=== PATIENT | female | born 1965 | race Caucasian/White ===

== ENCOUNTER 2023-01-02 09:35 | Emergency (ER) | payer BC, OTHER ==
[2023-01-02] MEDS ORDERED: Gabapentin 300 MG CAP ONE (10:39)
[2023-01-02 11:40] LABS: #Eosinphils 0.1 10x3/uL (0.0-0.5); #Monocytes 0.4 10x3/uL (0.0-1.1); #Neutrophils 2.3 10x3/uL (1.5-8.4); %Basophils 0.7 % (0.0-2.0); %Eosinophils 2.2 % (0.0-6.0); %Lymphocytes 37.1 % (18.0-47.0); %Monocytes 8.3 % (0.0-10.0); %Neutrophils 51.5 % (40.0-75.0); Hematocrit 35.2 % (34.9-44.5); Hemoglobin 11.9 g/dL (12.0-15.5); Mean Corpuscular HGB CONC 33.8 g/dL (32.0-36.0); Mean Corpuscular Hemoglobin 35.7 pg (27.0-33.0); Mean Corpuscular Volume 105.7 fl (81.6-98.3); Mean Platelet Volume 8.9 fl (7.4-10.4); Platelet Count 232 10x3/uL (150-450); RBC Distribution Width 14.6 % (11.5-14.5); Red Blood Cell (RBC) Count 3.33 10x6/uL (3.90-5.03); White Blood Cell (WBC) Count 4.5 10x3/uL (3.5-10.5)
[2023-01-02 11:41] LABS: ALT (SGPT) 9 U/L (8-55); AST (SGOT) 14 U/L (5-34); Albumin 4.2 g/dL (3.5-5.0); Alkaline Phosphatase 77 U/L (40-110); Anion Gap 15 mmol/L (10-20); BUN (Urea Nitrogen) 16 mg/dL (9.8-20.1); Bilirubin, Total 1.3 mg/dL (0.2-1.2); Calc. Creatinine Clearance 0 mL/min (70-130); Calcium 8.9 mg/dL (7.8-10.44); Carbon Dioxide 25 mmol/L (22-29); Chloride 104 mmol/L (98-107); Estimated GFR 89; Globulin 2.1 g/dL (2.4-3.5); Glucose 98 mg/dL (70-105); Potassium 4.1 mmol/L (3.5-5.1); Protein, Total 6.3 g/dL (6.0-8.3); Sodium 140 mmol/L (136-145)
[2023-01-02 11:48] LABS: Troponin I Less than 0.010 ng/mL (< 0.028)
== END 2023-01-02 12:58 | disposition home or self-care (01) ==
LOC: CSHERS 09:35
DX: R06.02 Shortness of breath (principal); M25.561 Pain in right knee; G89.29 Other chronic pain; I50.9 Heart failure, unspecified
CPT/HCPCS: 71045; 80053; 83880; 84484; 85025; 93005

== ENCOUNTER 2023-01-11 10:50 | Inpatient (IN) | payer OTHER ==
[2023-01-11 12:04] LABS: #Eosinphils 0.1 10x3/uL (0.0-0.5); #Monocytes 0.4 10x3/uL (0.0-1.1); #Neutrophils 2.1 10x3/uL (1.5-8.4); %Basophils 0.7 % (0.0-2.0); %Eosinophils 2.3 % (0.0-6.0); %Lymphocytes 40.6 % (18.0-47.0); %Monocytes 8.8 % (0.0-10.0); %Neutrophils 47.4 % (40.0-75.0); Hematocrit 35.7 % (34.9-44.5); Hemoglobin 12.2 g/dL (12.0-15.5); Mean Corpuscular HGB CONC 34.2 g/dL (32.0-36.0); Mean Corpuscular Hemoglobin 36.1 pg (27.0-33.0); Mean Corpuscular Volume 105.6 fl (81.6-98.3); Mean Platelet Volume 8.8 fl (7.4-10.4); Platelet Count 227 10x3/uL (150-450); RBC Distribution Width 14.4 % (11.5-14.5); Red Blood Cell (RBC) Count 3.38 10x6/uL (3.90-5.03); White Blood Cell (WBC) Count 4.3 10x3/uL (3.5-10.5)
[2023-01-11 12:16] LABS: ALT (SGPT) 15 U/L (8-55); AST (SGOT) 20 U/L (5-34); Albumin 4.4 g/dL (3.5-5.0); Alkaline Phosphatase 68 U/L (40-110); Anion Gap 14 mmol/L (10-20); BUN (Urea Nitrogen) 14 mg/dL (9.8-20.1); Bilirubin, Total 0.7 mg/dL (0.2-1.2); Calc. Creatinine Clearance 0 mL/min (70-130); Carbon Dioxide 26 mmol/L (22-29); Chloride 106 mmol/L (98-107); Estimated GFR 94; Globulin 2.4 g/dL (2.4-3.5); Glucose 107 mg/dL (70-105); Magnesium 1.9 mg/dL (1.6-2.6); Potassium 4.2 mmol/L (3.5-5.1); Protein, Total 6.8 g/dL (6.0-8.3); Sodium 142 mmol/L (136-145)
[2023-01-11 12:21] LABS: Troponin I Less than 0.010 ng/mL (< 0.028)
[2023-01-11 12:30] LABS: Bilirubin Neg (Negative); Blood, Urine 25 (Negative); Clarity Clear (Clear); Glucose, Urine (Dipstick) Normal (Negative); Ketone, Urine Negative (Negative); Leukocyte 25 (Negative); Nitrite Negative (Negative); Protein, Urine (Dipstick) 15 mg/dl (Neg-Trace); Specific Gravity, Urine 1.015 (1.005-1.030); Urobilinogen Normal mg/dL (Less than 2); pH, Urine 6.5 (5.0-9.0)
[2023-01-11 13:20] LABS: RBC/HPF 0-3 HPF (0-3)
[2023-01-11 13:21] LABS: CAUTI Indications for Culture Dysuria,urgency,freq; WBC/HPF 0-3 HPF (0-3)
[2023-01-11 13:22] LABS: Bacteria/HPF Rare-Few HPF (None Seen); Urine Culture Reflex No No
[2023-01-11] MEDS ORDERED: Ondansetron PF 4 MG/2 ML Vial IVP PRN (14:13)
[2023-01-11] MEDS ORDERED: Ondansetron ODT 4 MG TAB PO PRN (14:13)
[2023-01-11] MEDS: Acetaminophen 325 MG TAB PO PRN (22:35)
[2023-01-12] MEDS ORDERED: Apixaban 5 MG TAB PO SCH
[2023-01-12] MEDS ORDERED: Melatonin 3 MG TAB PO PRN (00:02)
[2023-01-12] MEDS ORDERED: Furosemide 40 MG/4 ML VIAL SLOW IVP SCH (00:15)
[2023-01-12] MEDS ORDERED: traMADol HCl 50 MG TAB PO SCH (00:15)
[2023-01-12 05:34] LABS: #Eosinphils 0.1 10x3/uL (0.0-0.5); #Monocytes 0.4 10x3/uL (0.0-1.1); #Neutrophils 1.8 10x3/uL (1.5-8.4); %Basophils 0.7 % (0.0-2.0); %Eosinophils 3.3 % (0.0-6.0); %Lymphocytes 44.3 % (18.0-47.0); %Monocytes 9.4 % (0.0-10.0); %Neutrophils 42.1 % (40.0-75.0); Hematocrit 36.2 % (34.9-44.5); Hemoglobin 12.1 g/dL (12.0-15.5); Mean Corpuscular HGB CONC 33.4 g/dL (32.0-36.0); Mean Corpuscular Hemoglobin 35.5 pg (27.0-33.0); Mean Corpuscular Volume 106.2 fl (81.6-98.3); Mean Platelet Volume 8.9 fl (7.4-10.4); Platelet Count 229 10x3/uL (150-450); RBC Distribution Width 14.4 % (11.5-14.5); Red Blood Cell (RBC) Count 3.41 10x6/uL (3.90-5.03); White Blood Cell (WBC) Count 4.2 10x3/uL (3.5-10.5)
[2023-01-12 05:48] LABS: Anion Gap 15 mmol/L (10-20); BUN (Urea Nitrogen) 11 mg/dL (9.8-20.1); Calc. Creatinine Clearance 162 mL/min (70-130); Calcium 9.3 mg/dL (7.8-10.44); Carbon Dioxide 29 mmol/L (22-29); Chloride 101 mmol/L (98-107); Estimated GFR 85; Glucose 101 mg/dL (70-105); Potassium 3.8 mmol/L (3.5-5.1); Sodium 141 mmol/L (136-145)
[2023-01-12] MEDS: Furosemide 40 MG/4 ML VIAL SLOW IVP SCH ×2 (06:23→14:52)
[2023-01-12] MEDS: Gabapentin 300 MG CAP PO SCH ×3 (08:24→19:54)
[2023-01-12] MEDS: Escitalopram Oxalate 20 mg Tablet PO SCH (08:24)
[2023-01-12] MEDS: Spironolactone 25 MG TAB PO SCH (08:25)
[2023-01-12] MEDS: Apixaban 5 MG TAB PO SCH ×2 (08:25→19:54)
[2023-01-12] MEDS: busPIRone HCl 15 MG TAB PO SCH ×2 (08:25→19:54)
[2023-01-12] MEDS: traMADol HCl 50 MG TAB PO PRN ×2 (11:47→19:55)
[2023-01-12 17:41] LABS: Troponin I 0.011 ng/mL (< 0.028)
[2023-01-12] MEDS: Zolpidem Tartrate 5 MG TAB PO PRN (20:19)
[2023-01-13] MEDS: traMADol HCl 50 MG TAB PO PRN ×3 (02:54→16:42)
[2023-01-13 05:28] LABS: #Eosinphils 0.1 10x3/uL (0.0-0.5); #Monocytes 0.4 10x3/uL (0.0-1.1); #Neutrophils 1.5 10x3/uL (1.5-8.4); %Basophils 0.5 % (0.0-2.0); %Lymphocytes 42.7 % (18.0-47.0); %Monocytes 11.5 % (0.0-10.0); %Neutrophils 42.3 % (40.0-75.0); Hematocrit 33.9 % (34.9-44.5); Hemoglobin 11.4 g/dL (12.0-15.5); Mean Corpuscular HGB CONC 33.6 g/dL (32.0-36.0); Mean Corpuscular Hemoglobin 36.1 pg (27.0-33.0); Mean Corpuscular Volume 107.3 fl (81.6-98.3); Mean Platelet Volume 8.7 fl (7.4-10.4); Platelet Count 214 10x3/uL (150-450); RBC Distribution Width 14.6 % (11.5-14.5); Red Blood Cell (RBC) Count 3.16 10x6/uL (3.90-5.03); White Blood Cell (WBC) Count 3.7 10x3/uL (3.5-10.5)
[2023-01-13 05:38] LABS: Anion Gap 13 mmol/L (10-20); BUN (Urea Nitrogen) 16 mg/dL (9.8-20.1); Calc. Creatinine Clearance 155 mL/min (70-130); Calcium 8.4 mg/dL (7.8-10.44); Carbon Dioxide 32 mmol/L (22-29); Chloride 99 mmol/L (98-107); Estimated GFR 81; Glucose 94 mg/dL (70-105); Potassium 3.4 mmol/L (3.5-5.1); Sodium 141 mmol/L (136-145)
[2023-01-13] MEDS: Furosemide 40 MG/4 ML VIAL SLOW IVP SCH ×2 (05:53→12:41)
[2023-01-13] MEDS: busPIRone HCl 15 MG TAB PO SCH ×2 (09:15→20:58)
[2023-01-13] MEDS: Gabapentin 300 MG CAP PO SCH ×3 (09:15→20:57)
[2023-01-13] MEDS: Spironolactone 25 MG TAB PO SCH (09:16)
[2023-01-13] MEDS: Escitalopram Oxalate 20 mg Tablet PO SCH (09:16)
[2023-01-13] MEDS: Apixaban 5 MG TAB PO SCH ×2 (09:16→20:57)
[2023-01-13] MEDS ORDERED: Potassium Chloride 20 MEQ TAB PO SCH (10:15)
[2023-01-13] MEDS ORDERED: Dronedarone HCl 400 MG TAB PO SCH (12:00)
[2023-01-13] MEDS ORDERED: Magnesium 2 GM/50 ML(in water) 2 GM in Premix Bag 1 BAG IVPB SCH (13:00)
[2023-01-13] MEDS: Dronedarone HCl 400 MG TAB PO SCH (16:43)
[2023-01-13] MEDS: Zolpidem Tartrate 5 MG TAB PO PRN (21:11)
[2023-01-13] MEDS ORDERED: Docusate 100 MG CAP PO PRN (23:02)
[2023-01-14] MEDS: Acetaminophen 325 MG TAB PO PRN ×2 (00:20→23:40)
[2023-01-14] MEDS: traMADol HCl 50 MG TAB PO PRN ×2 (03:58→15:32)
[2023-01-14 04:05] VITALS: BMI 20.4
[2023-01-14 05:12] LABS: #Eosinphils 0.1 10x3/uL (0.0-0.5); #Monocytes 0.5 10x3/uL (0.0-1.1); #Neutrophils 1.6 10x3/uL (1.5-8.4); %Basophils 0.5 % (0.0-2.0); %Eosinophils 3.4 % (0.0-6.0); %Lymphocytes 46.8 % (18.0-47.0); %Monocytes 11.2 % (0.0-10.0); %Neutrophils 37.9 % (40.0-75.0); Hematocrit 36.6 % (34.9-44.5); Hemoglobin 12.4 g/dL (12.0-15.5); Mean Corpuscular HGB CONC 33.9 g/dL (32.0-36.0); Mean Corpuscular Hemoglobin 35.5 pg (27.0-33.0); Mean Corpuscular Volume 104.9 fl (81.6-98.3); Mean Platelet Volume 8.5 fl (7.4-10.4); Platelet Count 237 10x3/uL (150-450); RBC Distribution Width 14.3 % (11.5-14.5); Red Blood Cell (RBC) Count 3.49 10x6/uL (3.90-5.03); White Blood Cell (WBC) Count 4.1 10x3/uL (3.5-10.5)
[2023-01-14 05:29] LABS: ALT (SGPT) 14 U/L (8-55); AST (SGOT) 18 U/L (5-34); Albumin 4.1 g/dL (3.5-5.0); Alkaline Phosphatase 63 U/L (40-110); Anion Gap 12 mmol/L (10-20); BUN (Urea Nitrogen) 26 mg/dL (9.8-20.1); Bilirubin, Total 0.5 mg/dL (0.2-1.2); Calc. Creatinine Clearance 58 mL/min (70-130); Calcium 8.9 mg/dL (7.8-10.44); Carbon Dioxide 32 mmol/L (22-29); Chloride 98 mmol/L (98-107); Estimated GFR 64; Globulin 2.6 g/dL (2.4-3.5); Glucose 104 mg/dL (70-105); Magnesium 2.3 mg/dL (1.6-2.6); Potassium 3.9 mmol/L (3.5-5.1); Protein, Total 6.7 g/dL (6.0-8.3); Sodium 138 mmol/L (136-145)
[2023-01-14] MEDS: busPIRone HCl 15 MG TAB PO SCH ×2 (08:12→20:23)
[2023-01-14] MEDS: Spironolactone 25 MG TAB PO SCH (08:12)
[2023-01-14] MEDS: Gabapentin 300 MG CAP PO SCH ×3 (08:12→20:23)
[2023-01-14] MEDS: Polyethylene Glycol 3350 17 GM Packet PO SCH (08:13)
[2023-01-14] MEDS: Apixaban 5 MG TAB PO SCH ×2 (08:13→20:23)
[2023-01-14] MEDS: Escitalopram Oxalate 20 mg Tablet PO SCH (08:13)
[2023-01-14] MEDS: Dronedarone HCl 400 MG TAB PO SCH ×2 (08:13→17:24)
[2023-01-14] MEDS ORDERED: Furosemide 20 MG TAB PO SCH (10:15)
[2023-01-14] MEDS: Furosemide 40 MG TAB PO SCH (15:24)
[2023-01-14] MEDS: Zolpidem Tartrate 5 MG TAB PO PRN (20:25)
[2023-01-15] MEDS: traMADol HCl 50 MG TAB PO PRN ×3 (02:48→17:50)
[2023-01-15 03:31] LABS: #Eosinphils 0.1 10x3/uL (0.0-0.5); #Monocytes 0.4 10x3/uL (0.0-1.1); #Neutrophils 1.6 10x3/uL (1.5-8.4); %Basophils 0.8 % (0.0-2.0); %Lymphocytes 44.1 % (18.0-47.0); %Monocytes 10.8 % (0.0-10.0); Hematocrit 34.5 % (34.9-44.5); Hemoglobin 11.5 g/dL (12.0-15.5); Mean Corpuscular HGB CONC 33.3 g/dL (32.0-36.0); Mean Corpuscular Hemoglobin 35.3 pg (27.0-33.0); Mean Corpuscular Volume 105.8 fl (81.6-98.3); Platelet Count 219 10x3/uL (150-450); RBC Distribution Width 13.9 % (11.5-14.5); Red Blood Cell (RBC) Count 3.26 10x6/uL (3.90-5.03)
[2023-01-15 03:47] LABS: Anion Gap 11 mmol/L (10-20); BUN (Urea Nitrogen) 26 mg/dL (9.8-20.1); Calc. Creatinine Clearance 66 mL/min (70-130); Calcium 8.7 mg/dL (7.8-10.44); Carbon Dioxide 34 mmol/L (22-29); Chloride 98 mmol/L (98-107); Estimated GFR 74; Glucose 101 mg/dL (70-105); Magnesium 2.1 mg/dL (1.6-2.6); Potassium 4.1 mmol/L (3.5-5.1); Sodium 139 mmol/L (136-145)
[2023-01-15] MEDS: Spironolactone 25 MG TAB PO SCH (08:51)
[2023-01-15] MEDS: Polyethylene Glycol 3350 17 GM Packet PO SCH (08:51)
[2023-01-15] MEDS: Escitalopram Oxalate 20 mg Tablet PO SCH (08:52)
[2023-01-15] MEDS: Gabapentin 300 MG CAP PO SCH ×2 (08:53→14:16)
[2023-01-15] MEDS: Furosemide 40 MG TAB PO SCH ×2 (08:54→14:15)
[2023-01-15] MEDS: Apixaban 5 MG TAB PO SCH (08:55)
[2023-01-15] MEDS: busPIRone HCl 15 MG TAB PO SCH (08:56)
[2023-01-15] MEDS: Dronedarone HCl 400 MG TAB PO SCH ×2 (08:56→17:50)
[2023-01-15] MEDS: Acetaminophen 325 MG TAB PO PRN (14:14)
[2023-01-15 17:55] VITALS: BP 136/77; TEMP 97.8
== END 2023-01-15 19:00 | disposition home or self-care (01) | DRG 291 ==
LOC: CSHERS 10:50 → SUATTDRO 10:50 → CSHTELE 14:08 → OBSVTOIN 01-13 15:33
PROVIDERS: ADMIT Family Medicine; ATTEND Internal Medicine
DX: I11.0 Hypertensive heart disease with heart failure (principal); I50.33 Acute on chronic diastolic (congestive) heart failure; E78.5 Hyperlipidemia, unspecified; I48.91 Unspecified atrial fibrillation; G89.29 Other chronic pain; F19.10 Other psychoactive substance abuse, uncomplicated; F39 Unspecified mood [affective] disorder; G47.33 Obstructive sleep apnea (adult) (pediatric); Z88.8 Allergy status to other drugs, medicaments and biological substances; Z79.899 Other long term (current) drug therapy; Z98.890 Other specified postprocedural states; Z90.49 Acquired absence of other specified parts of digestive tract; Z90.89 Acquired absence of other organs; Z87.891 Personal history of nicotine dependence; Z79.01 Long term (current) use of anticoagulants; Z86.711 Personal history of pulmonary embolism; Z86.718 Personal history of other venous thrombosis and embolism
CPT/HCPCS: 36415; 71046; 80048; 80053; 81001; 83735; 83880; 84484; 85025; 85379; 93005; 93010; 93970; 94760; J1940; J3475

== ENCOUNTER 2023-02-26 12:06 | Emergency (ER) | payer OTHER ==
[2023-02-26] MEDS ORDERED: Cyclobenzaprine 10 MG TAB ONE (13:16)
== END 2023-02-26 13:26 | disposition home or self-care (01) ==
LOC: CSHERS 12:06
DX: G89.29 Other chronic pain (principal); M54.9 Dorsalgia, unspecified; I25.10 Atherosclerotic heart disease of native coronary artery without angina pectoris; I11.0 Hypertensive heart disease with heart failure; I50.9 Heart failure, unspecified; E78.00 Pure hypercholesterolemia, unspecified; Z76.0 Encounter for issue of repeat prescription; Z87.891 Personal history of nicotine dependence
CPT/HCPCS: 99283

== ENCOUNTER 2023-11-15 22:36 | Emergency (ER) | payer BC, SELFPAY ==
[2023-11-16] MEDS ORDERED: Boostrix 0.5 ML (Tdap) VIAL (>/=7 yrs of age) ONE (00:13)
[2023-11-16] MEDS ORDERED: Morphine 4 MG/ML VIAL ONE (00:13)
== END 2023-11-16 00:15 | disposition home or self-care (01) ==
LOC: CSHERS 22:36
DX: T20.20XA Burn of second degree of head, face, and neck, unspecified site, initial encounter (principal); T31.0 Burns involving less than 10% of body surface; I11.0 Hypertensive heart disease with heart failure; I50.9 Heart failure, unspecified; E11.9 Type 2 diabetes mellitus without complications; I25.10 Atherosclerotic heart disease of native coronary artery without angina pectoris; Z79.01 Long term (current) use of anticoagulants; Z55.6 Problems related to health literacy; Z23 Encounter for immunization; Z87.891 Personal history of nicotine dependence
CPT/HCPCS: 90471; 90715; 96374; J2270

== ENCOUNTER 2023-11-23 19:55 | Inpatient (IN) | payer BC, SELFPAY ==
[2023-11-23] MEDS ORDERED: dilTIAZem 125 MG/25 ML SDV ONE (20:39)
[2023-11-23] MEDS ORDERED: dilTIAZem 25 MG/5 ML VIAL ONE ×2 (20:39→23:18)
[2023-11-23 21:11] LABS: #Basophils 0.05 10x3/uL (0.0-0.2); #Eosinphils 0.13 10x3/uL (0.0-0.5); #Monocytes 0.59 10x3/uL (0.0-1.1); %Basophils 0.6 % (0.0-2.0); %Eosinophils 1.7 % (0.0-6.0); %Lymphocytes 30.5 % (18.0-47.0); %Monocytes 7.6 % (0.0-10.0); %Neutrophils 59.5 % (40.0-75.0); Hematocrit 39.8 % (34.9-44.5); Hemoglobin 14.1 g/dL (12.0-15.5); Mean Corpuscular HGB CONC 35.4 g/dL (32.0-36.0); Mean Corpuscular Hemoglobin 38.1 pg (27.0-33.0); Mean Corpuscular Volume 107.6 fL (81.6-98.3); Mean Platelet Volume 9.2 fL (7.4-10.4); Platelet Count 301 10x3/uL (150-450); RBC Distribution Width 13.8 % (11.5-14.5); White Blood Cell (WBC) Count 7.7 10x3/uL (3.5-10.5)
[2023-11-23 21:14] LABS: INR-International Normal Ratio 1.2; PTT 27.2 sec (22.0-33.0); Prothrombin Time 12.9 sec (9.5-12.1)
[2023-11-23 21:16] LABS: ALT (SGPT) 24 U/L (8-55); AST (SGOT) 30 U/L (5-34); Albumin 4.4 g/dL (3.5-5.0); Alkaline Phosphatase 98 U/L (40-110); Anion Gap 18 mmol/L (10-20); BUN (Urea Nitrogen) 13 mg/dL (9.8-20.1); Bilirubin, Total 0.6 mg/dL (0.2-1.2); Calc. Creatinine Clearance 0 mL/min (70-130); Carbon Dioxide 32 mmol/L (22-29); Chloride 96 mmol/L (98-107); Estimated GFR 75; Glucose 121 mg/dL (70-105); Potassium 3.5 mmol/L (3.5-5.1); Protein, Total 7.4 g/dL (6.0-8.3); Sodium 142 mmol/L (136-145)
[2023-11-23 21:17] LABS: Acetaminophen Less than 10 mcg/mL (10.0-30.0); Alcohol Less than 10.0 mg/dL (Less than 10); Lipase 31 U/L (8-78); Salicylate Less than 8.0 mg/dL (15.0-30.0)
[2023-11-23 21:20] LABS: Troponin I Less than 0.010 ng/mL (< 0.028)
[2023-11-23 22:20] LABS: Influenza A by NAA Not Detected (NotDetected); Influenza B by NAA Not Detected (NotDetected); SARS-CoV-2 NAA Rapid Test Not Detected (NotDetected)
[2023-11-23] MEDS ORDERED: Acetaminophen 500 MG TAB ONE (23:41)
[2023-11-24] MEDS ORDERED: Calcium Carbonate 500 MG ChewTAB PO PRN (00:49)
[2023-11-24] MEDS ORDERED: Senokot S 8.6-50 MG TAB PO PRN (00:49)
[2023-11-24 00:56] LABS: Amphetamine Not Detected (NotDetected); Barbiturates Screen Not Detected (NotDetected); Benzodiazepine Screen Not Detected (NotDetected); Cocaine Metabolite Screen Not Detected (NotDetected); Methadone Not Detected (NotDetected); Methamphetamine Not Detected (NotDetected); Opiate Screen Detected (NotDetected); Oxycodone Screen Not Detected (NotDetected); Phencyclidine (PCP) Not Detected (NotDetected); THC/Cannabinoid Screen Not Detected (NotDetected); Tricyclic Screen Not Detected (NotDetected)
[2023-11-24 03:03] VITALS: BMI 46.7
[2023-11-24] MEDS: Guaifenesin DM 100-10/5 ML UDCUP PO PRN (03:16)
[2023-11-24] MEDS: Potassium Chloride 20 MEQ in Premix 1 BAG IVPB SCH (03:34)
[2023-11-24] MEDS: Potassium Chloride 20 MEQ TAB PO SCH ×2 (03:43→03:45)
[2023-11-24 04:05] LABS: Anion Gap 15 mmol/L (10-20); BUN (Urea Nitrogen) 12 mg/dL (9.8-20.1); Calc. Creatinine Clearance 176 mL/min (70-130); Calcium 8.7 mg/dL (7.8-10.44); Carbon Dioxide 32 mmol/L (22-29); Chloride 97 mmol/L (98-107); Estimated GFR 89; Glucose 112 mg/dL (70-105); Magnesium 1.2 mg/dL (1.6-2.6); Potassium 2.9 mmol/L (3.5-5.1); Sodium 141 mmol/L (136-145)
[2023-11-24] MEDS: traMADol HCl 50 MG TAB PO PRN (04:15)
[2023-11-24 04:18] LABS: Thyroid Stimulating Hormone 3.5345 uIU/mL (0.35-4.94)
[2023-11-24 04:27] LABS: Troponin I Less than 0.010 ng/mL (< 0.028)
[2023-11-24] MEDS: Magnesium 2 GM/50 ML(in water) 2 GM in Premix 1 BAG IVPB SCH ×2 (04:56→08:46)
[2023-11-24] MEDS: Furosemide 20 MG (2 mL) VIAL SLOW IVP SCH (06:19)
[2023-11-24] MEDS: Dronedarone HCl 400 MG TAB PO SCH (06:54)
[2023-11-24] MEDS ORDERED: Electrolyte Replacement Protocol 1 EACH FS PRN (07:50)
[2023-11-24] MEDS: dilTIAZem 125 MG in Sodium Chloride 0.9% 100 ML IVPB SCH (08:46)
[2023-11-24] MEDS: Gabapentin 300 MG CAP PO SCH (08:47)
[2023-11-24] MEDS: Magnesium Oxide 400 MG TAB PO SCH (08:47)
[2023-11-24] MEDS: Apixaban 5 MG TAB PO SCH (08:47)
[2023-11-24] MEDS: busPIRone HCl 15 MG TAB PO SCH (08:47)
[2023-11-24] MEDS: Pantoprazole DR 40 MG TAB PO SCH (08:48)
[2023-11-24] MEDS ORDERED: Furosemide 20 MG (2 mL) VIAL SLOW IVP SCH (09:00)
[2023-11-24] MEDS: Escitalopram Oxalate 20 mg Tablet PO SCH (09:15)
[2023-11-24] MEDS: Loratadine 10 MG TAB PO SCH (11:13)
[2023-11-24 12:29] LABS: Anion Gap 12 mmol/L (10-20); BUN (Urea Nitrogen) 12 mg/dL (9.8-20.1); Calc. Creatinine Clearance 188 mL/min (70-130); Calcium 8.4 mg/dL (7.8-10.44); Carbon Dioxide 35 mmol/L (22-29); Chloride 95 mmol/L (98-107); Estimated GFR 97; Glucose 103 mg/dL (70-105); Potassium 3.2 mmol/L (3.5-5.1); Sodium 139 mmol/L (136-145)
[2023-11-24] MEDS: Acetaminophen 325 MG TAB PO PRN (14:15)
[2023-11-24] MEDS: Potassium Bicarbonate/Cit Ac 20 MEQ TAB PO SCH (16:22)
[2023-11-24] MEDS: Fluticasone Propionate Nasal Spray 16 gm Bottle NASAL SCH (21:25)
[2023-11-24] MEDS: tiZANidine HCl 4 MG TAB PO PRN (21:40)
[2023-11-24] MEDS: guaiFENesin ER 600 MG TAB PO SCH (23:11)
[2023-11-25] MEDS: Metoprolol Tartrate 25 MG TAB PO SCH ×2 (04:33→20:10)
[2023-11-25 04:34] LABS: Anion Gap 16 mmol/L (10-20); BUN (Urea Nitrogen) 14 mg/dL (9.8-20.1); Calc. Creatinine Clearance 178 mL/min (70-130); Calcium 8.8 mg/dL (7.8-10.44); Carbon Dioxide 33 mmol/L (22-29); Chloride 96 mmol/L (98-107); Estimated GFR 91; Glucose 99 mg/dL (70-105); Phosphorus 3.3 mg/dL (2.3-4.7); Potassium 3.5 mmol/L (3.5-5.1); Sodium 141 mmol/L (136-145)
[2023-11-25] MEDS: Potassium Bicarbonate/Cit Ac 20 MEQ TAB PO SCH (05:38)
[2023-11-25] MEDS: Magnesium 2 GM/50 ML(in water) 2 GM in Premix 1 BAG IVPB SCH (05:40)
[2023-11-25] MEDS: guaiFENesin ER 600 MG TAB PO SCH (09:49)
[2023-11-25] MEDS: Loratadine 10 MG TAB PO SCH (09:50)
[2023-11-25] MEDS: Furosemide 40 MG (4 mL) VIAL SLOW IVP SCH (14:35)
[2023-11-25] MEDS: Ibuprofen 200 MG TAB PO PRN (14:36)
[2023-11-25] MEDS: Polyethylene Glycol 3350 17 GM Packet PO PRN (14:56)
[2023-11-26 11:06] LABS: Anion Gap 14 mmol/L (10-20); BUN (Urea Nitrogen) 18 mg/dL (9.8-20.1); Calc. Creatinine Clearance 159 mL/min (70-130); Calcium 9.1 mg/dL (7.8-10.44); Carbon Dioxide 34 mmol/L (22-29); Chloride 95 mmol/L (98-107); Estimated GFR 79; Glucose 92 mg/dL (70-105); Potassium 3.9 mmol/L (3.5-5.1); Sodium 139 mmol/L (136-145)
[2023-11-26] MEDS: Potassium Chloride 20 MEQ TAB PO SCH (12:13)
[2023-11-26 20:35] VITALS: BP 149/80; TEMP 98.2
[2023-11-27] MEDS ORDERED: Furosemide 40 MG TAB PO SCH (09:00)
== END 2023-11-26 19:35 | disposition home health service (06) | DRG 291 ==
LOC: CSHERS 19:55 → CSHTELE 11-24 00:55
PROVIDERS: ADMIT Student in an Organized Health Care Education/Training Program; ATTEND Internal Medicine
DX: I11.0 Hypertensive heart disease with heart failure (principal); I50.43 Acute on chronic combined systolic (congestive) and diastolic (congestive) heart failure; I27.82 Chronic pulmonary embolism; J96.11 Chronic respiratory failure with hypoxia; I48.0 Paroxysmal atrial fibrillation; E66.01 Morbid (severe) obesity due to excess calories; G89.29 Other chronic pain; I27.20 Pulmonary hypertension, unspecified; Z79.891 Long term (current) use of opiate analgesic; Z79.899 Other long term (current) drug therapy; Z86.718 Personal history of other venous thrombosis and embolism; Z90.49 Acquired absence of other specified parts of digestive tract; Z91.199 Patient's noncompliance with other medical treatment and regimen due to unspecified reason
CPT/HCPCS: 36415; 71045; 71275; 80048; 80053; 80306; 80307; 82607; 83605; 83690; 83735; 83880; 84100; 84132; 84443; 84484; 85025; 85610; 85730; 93005; 93010; 93306; 94760; 96374; 96376; J1940; J3475; J3480

== ENCOUNTER 2024-01-19 18:45 | Emergency (ER) | payer BC ==
[2024-01-19] MEDS ORDERED: HYDROcodone/Acetaminophen 5/325 mg Tablet ONE (20:22)
== END 2024-01-19 20:50 | disposition home or self-care (01) ==
LOC: CSHERS 18:45
DX: R07.81 Pleurodynia (principal); R05.9 Cough, unspecified; I25.10 Atherosclerotic heart disease of native coronary artery without angina pectoris; I11.0 Hypertensive heart disease with heart failure; I50.9 Heart failure, unspecified; E78.5 Hyperlipidemia, unspecified; I42.9 Cardiomyopathy, unspecified; I48.91 Unspecified atrial fibrillation; E11.9 Type 2 diabetes mellitus without complications; Z87.891 Personal history of nicotine dependence
CPT/HCPCS: 71045; 93005

== ENCOUNTER 2024-02-03 07:58 | Emergency (ER) | payer BC ==
[2024-02-03 08:40] LABS: #Basophils 0.02 10x3/uL (0.0-0.2); #Eosinophils 0.23 10x3/uL (0.0-0.5); #Monocytes 0.53 10x3/uL (0.0-1.1); #Neutrophils 2.53 10x3/uL (1.5-8.4); %Basophils 0.4 % (0.0-2.0); %Eosinophils 4.5 % (0.0-6.0); %Lymphocytes 35.7 % (18.0-47.0); %Monocytes 10.3 % (0.0-10.0); %Neutrophils 48.9 % (40.0-75.0); Hematocrit 38.1 % (34.9-44.5); Hemoglobin 12.3 g/dL (12.0-15.5); Mean Corpuscular HGB CONC 32.3 g/dL (32.0-36.0); Mean Corpuscular Hemoglobin 33.1 pg (27.0-33.0); Mean Corpuscular Volume 102.4 fL (81.6-98.3); Mean Platelet Volume 8.8 fL (7.4-10.4); Platelet Count 197 10x3/uL (150-450); Red Blood Cell (RBC) Count 3.72 10x6/uL (3.90-5.03); White Blood Cell (WBC) Count 5.2 10x3/uL (3.5-10.5)
[2024-02-03 08:50] LABS: ALT (SGPT) 8 U/L (8-55); AST (SGOT) 10 U/L (5-34); Albumin 3.7 g/dL (3.5-5.0); Alkaline Phosphatase 61 U/L (40-110); Anion Gap 13 mmol/L (10-20); BUN (Urea Nitrogen) 14 mg/dL (9.8-20.1); Bilirubin, Total 0.4 mg/dL (0.2-1.2); Calc. Creatinine Clearance 0 mL/min (70-130); Calcium 9.3 mg/dL (7.8-10.44); Carbon Dioxide 29 mmol/L (22-29); Chloride 103 mmol/L (98-107); Estimated GFR 80; Globulin 2.9 g/dL (2.4-3.5); Glucose 94 mg/dL (70-105); Lipase 14 U/L (8-78); Potassium 4.2 mmol/L (3.5-5.1); Protein, Total 6.6 g/dL (6.0-8.3); Sodium 141 mmol/L (136-145)
[2024-02-03] MEDS ORDERED: HYDROmorphone 0.5 MG/0.5 ML SYRINGE ONE (09:25)
[2024-02-03] MEDS ORDERED: Ondansetron PF 4 MG/2 ML Vial ONE (09:25)
[2024-02-03 13:23] LABS: Bilirubin Neg (Negative); Blood, Urine Negative (Negative); Clarity Clear (Clear); Glucose, Urine (Dipstick) Normal (Negative); Ketone, Urine Negative (Negative); Leukocyte Negative (Negative); Nitrite Negative (Negative); Protein, Urine (Dipstick) 15 mg/dl (Neg-Trace); Specific Gravity, Urine 1.025 (1.005-1.030)
[2024-02-03 14:09] LABS: Bacteria/HPF 1+ HPF (None Seen); CAUTI Indications for Culture Pelvic or flank pain; RBC/HPF 0-3 HPF (0-3); Squamous Epithelial Greater than 50 HPF (0-3); WBC/HPF None Seen HPF (0-3)
[2024-02-03 14:10] LABS: Urine Culture Reflex No No
[2024-02-03] MEDS ORDERED: Dexamethasone 10 MG/ML VIAL ONE (14:26)
== END 2024-02-03 14:36 | disposition home or self-care (01) ==
LOC: CSHERS 07:58
DX: R10.9 Unspecified abdominal pain (principal); R09.1 Pleurisy; I11.0 Hypertensive heart disease with heart failure; I50.9 Heart failure, unspecified; I48.91 Unspecified atrial fibrillation; I25.10 Atherosclerotic heart disease of native coronary artery without angina pectoris; I42.9 Cardiomyopathy, unspecified; Z87.891 Personal history of nicotine dependence
CPT/HCPCS: 36415; 71045; 74176; 80053; 81001; 83690; 85025; 96374; 96375; J1100; J1170; J2405